=== PATIENT | male | born 1955 | race Asian ===

== ENCOUNTER 2020-09-12 12:10 | Outpatient (REF) | payer OTHER, SELFPAY ==
[2020-09-12 13:29] LABS: MANUAL DIFF FLAG NO
[2020-09-12 13:35] LABS: Basophils Percent Auto 0.4 % (0-2); Eosinophils Absolute Auto 0.2 X10*3/uL (0.0-0.4); Eosinophils Percent Auto 1.8 % (0-4); Hemoglobin 14.8 g/dl (14.0-18.0); Imm Gran Abs Auto 0.03 X10*3/uL (0.00-0.03); Imm Gran Pct Auto 0.4 % (0.0-0.4); Lymphocytes Absolute Auto 1.8 X10*3/uL (1.2-4.9); Lymphocytes Percent Auto 21.1 % (20-40); Mean Corpuscular HGB Conc 33.6 g/dl (31.0-36.0); Mean Corpuscular Hemoglobin 29.4 pg (27.0-33.0); Mean Corpuscular Volume 87.3 fL (80-98); Mean Platelet Volume 9.5 fL (9.4-12.4); Monocytes Absolute Auto 0.6 X10*3/uL (0.1-1.2); Monocytes Percent Auto 6.6 % (2-11); Neutrophils Absolute Auto 5.8 X10*3/uL (2.0-8.3); Neutrophils Percent Auto 69.7 % (45-73); Platelet Count 316 X10*3/uL (160-400); Red Blood Count 5.04 X10*6/uL (4.60-5.80); Red Cell Distribution Width 13.2 % (11.0-16.0); White Blood Count 8.4 X10*3/uL (4.8-10.8)
[2020-09-12 14:17] LABS: Alanine Aminotransferase 17 U/L (0-40); Albumin Level 4.4 g/dL (3.5-5.0); Alkaline Phosphatase 74 U/L (39-117); Anion Gap 14 (12-20); Aspartate Amino Transferase 22 U/L (5-37); Bilirubin Total 1.4 mg/dL (0.0-1.0); Blood Urea Nitrogen 18 mg/dL (9-16); Calcium 8.9 mg/dL (8.4-10.2); Carbon Dioxide 27 mmol/L (22-29); Chloride 103 mmol/L (96-108); Cholesterol 211 mg/dL; Estimated Glomerular Filt Rate > 60; Glucose Random 96 mg/dL (60-115); HDL Cholesterol 52 mg/dL; LDL Cholesterol Calculated 136 mg/dl; Potassium 4.5 mmol/l (3.3-5.1); Sodium 139 mmol/L (135-145); Total Protein 7.6 g/dL (6.5-8.0); Triglycerides 116 mg/dL
[2020-09-12 14:29] LABS: Folate 19.2 ng/mL (> or = 4.0); Vitamin B12 688 pg/mL (200-900)
[2020-09-12 14:34] LABS: Free T4 (Free Thyroxine) 1.05 ng/dL (0.71-1.85); Thyroid Stimulating Hormone 1.73 mIU/mL (0.32-4.0)
== END 2020-09-12 12:11 | disposition home or self-care (01) ==
LOC: HO.LAB 12:10
PROVIDERS: PCP Internal Medicine; Visit Provider Internal Medicine
DX: E78.00 Pure hypercholesterolemia, unspecified (principal); E03.9 Hypothyroidism, unspecified
CPT/HCPCS: 36415; 80053; 80061; 82607; 82746; 84439; 84443; 85025

== ENCOUNTER 2021-09-03 11:10 | Outpatient (REF) | payer OTHER, SELFPAY ==
[2021-09-03 11:29] LABS: MANUAL DIFF FLAG NO
[2021-09-03 12:02] LABS: Basophils Percent Auto 0.4 % (0-2); Eosinophils Absolute Auto 0.1 X10*3/uL (0.0-0.4); Eosinophils Percent Auto 1.6 % (0-4); Hematocrit 44.4 % (42-52); Imm Gran Abs Auto 0.02 X10*3/uL (0.00-0.03); Imm Gran Pct Auto 0.3 % (0.0-0.4); Lymphocytes Absolute Auto 1.6 X10*3/uL (1.2-4.9); Lymphocytes Percent Auto 19.6 % (20-40); Mean Corpuscular HGB Conc 33.8 g/dl (31.0-36.0); Mean Corpuscular Hemoglobin 29.2 pg (27.0-33.0); Mean Corpuscular Volume 86.5 fL (80-98); Mean Platelet Volume 9.6 fL (9.4-12.4); Monocytes Absolute Auto 0.5 X10*3/uL (0.1-1.2); Monocytes Percent Auto 6.6 % (2-11); Neutrophils Absolute Auto 5.6 X10*3/uL (2.0-8.3); Neutrophils Percent Auto 71.5 % (45-73); Platelet Count 283 X10*3/uL (160-400); Red Blood Count 5.13 X10*6/uL (4.60-5.80); Red Cell Distribution Width 13.1 % (11.0-16.0); White Blood Count 7.9 X10*3/uL (4.8-10.8)
[2021-09-03 12:23] LABS: Alanine Aminotransferase 15 U/L (0-40); Albumin Level 4.5 g/dL (3.5-5.0); Alkaline Phosphatase 80 U/L (39-117); Anion Gap 12 (12-20); Aspartate Amino Transferase 19 U/L (5-37); Bilirubin Total 1.5 mg/dL (0.0-1.0); Blood Urea Nitrogen 17 mg/dL (9-16); Calcium 9.8 mg/dL (8.4-10.2); Carbon Dioxide 25 mmol/L (22-29); Chloride 109 mmol/L (96-108); Cholesterol 219 mg/dL; Estimated Glomerular Filt Rate 56; Glucose Random 96 mg/dL (60-115); HDL Cholesterol 49 mg/dL; LDL Cholesterol Calculated 143 mg/dl; Potassium 4.8 mmol/L (3.3-5.1); Sodium 141 mmol/L (135-145); Total Protein 7.7 g/dL (6.5-8.0); Triglycerides 136 mg/dL
[2021-09-03 12:34] LABS: Free T4 (Free Thyroxine) 0.82 ng/dL (0.71-1.85); Prostate Specific Antigen Scr 0.31 ng/mL (<0.05-4.0); Thyroid Stimulating Hormone 1.43 uIU/mL (0.32-4.0)
[2021-09-03 12:54] LABS: Folate > 20.0 ng/mL (> or = 4.0); Vitamin B12 992 pg/mL (200-900)
== END 2021-09-03 11:11 | disposition home or self-care (01) ==
LOC: HO.LAB 11:10
PROVIDERS: PCP Internal Medicine; Visit Provider Internal Medicine
DX: I10 Essential (primary) hypertension (principal); E03.9 Hypothyroidism, unspecified; E78.00 Pure hypercholesterolemia, unspecified
CPT/HCPCS: 36415; 80053; 80061; 82607; 82746; 84153; 84439; 84443; 85025

== ENCOUNTER 2022-03-12 10:47 | Day surgery (SDC) | payer OTHER, SELFPAY ==
[2022-03-07 11:41] VITALS: BMI 28.6
[2022-03-07 12:42] VITALS: BMI 28.3
[2022-03-12 11:00] VITALS: BP 169/92; PULSE 82; RESP 18; TEMP 36.6; O2SAT 97
--- NOTE | 2022-03-12 12:47 | MHC.SHP ---
Pre-Procedural Eval Section A Date of Service: 03/12/22 The patient is an INPATIENT: No Changes since office visit: No Cold of Flu in the past 2 weeks, No New Medical Problems, No Changes in Medication and No Patient answered all questions The History & Physical has been completed within 30 days and I have reviewed it.: Yes Section B Chief Complaint: screening Allergies: Allergies Allergy/AdvReac Type Severity Reaction Status Date / Time CT /iv dye Allergy Unknown N/V, hot Uncoded 03/07/22 12:41 feeling when injected quickly Plan I have reviewed the history and physical and performed a pertinent physical examination on my patient. No changes have occurred unless specified.
--- NOTE | 2022-03-12 12:48 | HO.ANESPROP2 ---
[facility] Active Problems Active Problems: All Active Problems (Updated 03/07/22 @ 12:45 by Ophelia Avilez, RN) Hemorrhoids (Acute) Annual physical exam (Acute) Tubular adenoma of colon (Acute) Folic acid deficiency (Acute) Hypertension (Acute) Hypercholesterolemia (Acute) Hypothyroid (Acute) Past Medical History Medical History Folic acid deficiency Hx of renal calculi Hx of transfusion of packed red blood cells Hypercholesterolemia Hypertension Hypothyroid Lazy eye of left side Nephrolithiasis Tooth ache Tubular adenoma of colon Functional capacity: independent ambulation Family History Family History Father Hypertension CAD (coronary artery disease) Mother Hypertension Stroke Sister Thyroid cancer Family history of problems with anesthesia: No Surgical History Surgical History (Updated 03/07/22 @ 12:21 by Ophelia Avilez RN) History of eye surgery Pituitary tumor History of Problems with Anesthesia: No Social History Social History Housing: Apartment Are you a primary adult live in caregiver to a significant other at home: Yes (helps to care for mother with dementia, will have replacement DOS) Do you presently have visiting nurse or other home services: No Alcohol intake: never Patient Tobacco Use Status: Never used Tobacco e-Cigarette/Vaping Use: Never Used Second Hand Smoke Exposure: No Use of substances other than those prescribed or required for medical reasons: No Have you been hit, kicked, punched, or otherwise hurt by someone within the past year? If so, by whom?: No Are you DNR?: No Advance Directives: No Advance Directives Information Provided: Yes Advance Directives on File: No Recently lost weight without trying: No Nutrition Risks: No Nutritional Risk Poor oral hygiene: No (tooth ache-right lower molar) Current occupational status: employed Meds Allergies Allergy/AdvReac Type Severity Reaction Status Date / Time CT /iv dye Allergy Unknown N/V, hot Uncoded 03/07/22 12:41 feeling when injected quickly Exam Exam Date and Time: March 12, 2022 1248 Height,Weight and Vital Signs: Height 5 ft 5 in Weight 77.111 kg Last Vital Signs Temp 97.8 F 03/12/22 11:00 Pulse 82 03/12/22 11:00 Resp 18 03/12/22 11:00 BP 169/92 H 03/12/22 11:00 Pulse Ox 97 03/12/22 11:00 Airway Mallampati Class: II TM Dist: >3cm Neck ROM: Full Heart: RRR Lungs: CTA Assessment and Plan Assessment Anesthesia Assessment: Anesthesia Plan Discussed and Smoking Cess. Discussed Final Anesthetic Review Family History of Problems with Anesthesia: No History of Problems with Anesthesia: No ASA Class: II Final Preanesthetic Review: No Changes in Pt Med Stat, Meds/Allgs Chart Reviewed, Consent Obtained/Reviewed and Anes Risks/Benef Reviewed Patient Risk: Low Procedure Risk: Low Anesthetic Plan Disposition: Standard PACU
--- NOTE | 2022-03-12 13:14 | P.BOP_ITS ---
Brief Operative Note Date of Service: 03/12/22 Pre-op diagnosis: screeneng Post-op diagnosis: same Procedure: colonoscopy Surgeon: Alli Potter Anesthesia: MAC Was an Damage Appraiser used for this Procedure?: No Estimated blood loss (mL): 0 Pathology: none sent Condition: stable Disposition: PACU
[2022-03-12 13:20] VITALS: BP 118/80; PULSE 76; RESP 16; TEMP 36.1; O2SAT 97
[2022-03-12 13:35] VITALS: BP 149/95; PULSE 73; RESP 16; TEMP 36.2; O2SAT 95
--- NOTE | 2022-03-12 15:30 | HO.POSTANES ---
Post Anesthesia Evaluation Post Anesthesia Evaluation Vital Signs: Vital Signs Temp Pulse Resp BP Pulse Ox 03/12/22 13:35 97.2 F 73 16 149/95 H 95 03/12/22 13:20 97 F 76 16 118/80 97 03/12/22 11:00 97.8 F 82 18 169/92 H 97 Anesthesia: Monitored Mental Status: Awake Nausea/Vomiting: None Hydration: Adequate Anesthesia-Related Issues: No Anes. Related Issues
--- NOTE | 2022-03-13 00:39 | OP_ITS ---
SURGEON: Alli Potter MD INDICATIONS: Colon cancer screening and prior history of adenomatous colon polyps. PREOPERATIVE DIAGNOSIS: POSTOPERATIVE DIAGNOSIS: PROCEDURE PERFORMED: Colonoscopy to the terminal ilium. ESTIMATED BLOOD LOSS: COMPLICATIONS: ANESTHESIA: Medications, monitored anesthesia care. ASSISTANTS: SPECIMENS: DESCRIPTION OF PROCEDURE: History and physical performed. The risks and benefits of the procedure were explained to the patient. Informed consent was obtained. The patient was placed in the left lateral decubitus position. A digital rectal exam was performed and was remarkable for moderately large external hemorrhoids. The Olympus pediatric video colonoscope was introduced into the rectum and advanced to the cecum without difficulty. The cecum was identified by transillumination, palpation, and identification of the ileocecal valve. Examination was performed. The scope was removed. He tolerated the procedure well and was transferred to the recovery area in stable condition. FINDINGS: The terminal ileum was examined and appeared normal. The visualized colonic mucosa was normal. The quality of the prep was good except in the right colon where there was a large amount of liquid stool and some semi-formed stool. This was washed and suctioned as best possible. There was moderate diverticulosis mainly in the right colon and cecum. No polyps were identified. Retroflexed examination showed moderate-sized internal hemorrhoids. IMPRESSION: 1. Normal colonoscopy. 2. Internal/external hemorrhoids. 3. Diverticulosis. RECOMMENDATION: 1. Follow up as needed. 2. Repeat colonoscopy is recommended in 10 years for average risk individuals. 3. Surgical referral for evaluation of external hemorrhoids. (Declined by patient) MD HETAL Lebron/OLENAL / [id number] MTDD
== END 2022-03-12 14:33 | disposition home or self-care (01) ==
PROVIDERS: PCP Internal Medicine; Visit Provider Internal Medicine Gastroenterology
PROC: 0DJD8ZZ Inspection of Lower Intestinal Tract, Via Natural or Artificial Opening Endoscopic (ICD-10-PCS; CPT 45378; principal; 2022-03-12 12:40)
DX: Z12.11 Encounter for screening for malignant neoplasm of colon (principal); Z86.010 Personal history of colon polyps; K57.30 Diverticulosis of large intestine without perforation or abscess without bleeding; K64.8 Other hemorrhoids; K64.4 Residual hemorrhoidal skin tags; E53.8 Deficiency of other specified B group vitamins; E78.00 Pure hypercholesterolemia, unspecified; I10 Essential (primary) hypertension; E03.9 Hypothyroidism, unspecified; G81.94 Hemiplegia, unspecified affecting left nondominant side; H53.002 Unspecified amblyopia, left eye; Z79.899 Other long term (current) drug therapy; Z91.041 Radiographic dye allergy status; Z87.442 Personal history of urinary calculi; Z98.890 Other specified postprocedural states
CPT/HCPCS: 45378

== ENCOUNTER 2022-10-21 11:31 | Outpatient (REF) | payer MEDICARE, SELFPAY ==
[2022-10-21 11:43] LABS: MANUAL DIFF FLAG NO
[2022-10-21 12:10] LABS: Basophils Percent Auto 0.3 % (0-2); Eosinophils Absolute Auto 0.2 X10*3/uL (0.0-0.4); Eosinophils Percent Auto 1.7 % (0-4); Hematocrit 43.4 % (42.0-52.0); Hemoglobin 14.5 g/dl (14.0-18.0); Imm Gran Abs Auto 0.02 X10*3/uL (0.00-0.03); Imm Gran Pct Auto 0.2 % (0.0-0.4); Lymphocytes Absolute Auto 1.9 X10*3/uL (1.2-4.9); Lymphocytes Percent Auto 20.1 % (20-40); Mean Corpuscular HGB Conc 33.4 g/dl (31.0-36.0); Mean Corpuscular Hemoglobin 29.1 pg (27.0-33.0); Mean Corpuscular Volume 87.1 fL (80.0-98.0); Mean Platelet Volume 9.3 fL (9.4-12.4); Monocytes Absolute Auto 0.7 X10*3/uL (0.1-1.2); Monocytes Percent Auto 7.3 % (2-11); Neutrophils Absolute Auto 6.7 x10*3/uL (2.0-8.3); Neutrophils Percent Auto 70.4 % (45-73); Platelet Count 298 X10*3/uL (160-400); Red Blood Count 4.98 X10*6/uL (4.60-5.80); White Blood Count 9.6 X10*3/uL (4.8-10.8)
[2022-10-21 12:59] LABS: Alanine Aminotransferase 21 U/L (0-40); Albumin Level 4.3 g/dL (3.5-5.0); Alkaline Phosphatase 103 U/L (39-117); Anion Gap 10 (12-20); Aspartate Amino Transferase 26 U/L (5-37); Bilirubin Total 1.3 mg/dL (0.0-1.0); Blood Urea Nitrogen 16 mg/dL (9-16); Calcium 9.3 mg/dL (8.4-10.2); Carbon Dioxide 27 mmol/L (22-29); Chloride 110 mmol/L (96-108); Cholesterol 213 mg/dL; Estimated Glomerular Filt Rate > 60; Free T4 (Free Thyroxine) 0.99 ng/dL (0.71-1.85); Glucose Random 92 mg/dL (60-115); HDL Cholesterol 52 mg/dL; LDL Cholesterol Calculated 141 mg/dl; Potassium 5.2 mmol/L (3.3-5.1); Prostate Specific Antigen Scr 0.34 ng/mL (<0.05-4.0); Sodium 142 mmol/L (135-145); Thyroid Stimulating Hormone 0.87 uIU/mL (0.32-4.0); Total Protein 7.2 g/dL (6.5-8.0); Triglycerides 101 mg/dL
[2022-10-21 13:10] LABS: Folate 19.9 ng/mL (> or = 4.0); Vitamin B12 788 pg/mL (200-900)
== END 2022-10-21 11:32 | disposition home or self-care (01) ==
LOC: HO.LAB 11:31
PROVIDERS: PCP Internal Medicine; Visit Provider Internal Medicine
DX: Z12.5 Encounter for screening for malignant neoplasm of prostate (principal); E03.9 Hypothyroidism, unspecified; E78.00 Pure hypercholesterolemia, unspecified
CPT/HCPCS: 36415; 80053; 80061; 82607; 82746; 84153; 84439; 84443; 85025

== ENCOUNTER 2023-01-20 11:23 | Outpatient (REF) | payer MEDICARE, SELFPAY ==
[2023-01-20 12:40] LABS: Alanine Aminotransferase 11 U/L (0-40); Albumin Level 4.1 g/dL (3.5-5.0); Alkaline Phosphatase 101 U/L (39-117); Anion Gap 11 (12-20); Aspartate Amino Transferase 15 U/L (5-37); Bilirubin Total 1.4 mg/dL (0.0-1.0); Blood Urea Nitrogen 19 mg/dL (9-16); Calcium 9.2 mg/dL (8.4-10.2); Carbon Dioxide 26 mmol/L (22-29); Chloride 108 mmol/L (96-108); Cholesterol 211 mg/dL; Estimated Glomerular Filt Rate > 60; Glucose Random 90 mg/dL (60-115); HDL Cholesterol 52 mg/dL; LDL Cholesterol Calculated 140 mg/dl; Potassium 5.2 mmol/L (3.3-5.1); Sodium 140 mmol/L (135-145); Total Protein 7.1 g/dL (6.5-8.0); Triglycerides 98 mg/dL
== END 2023-01-20 11:24 | disposition home or self-care (01) ==
LOC: HO.LAB 11:23
PROVIDERS: PCP Internal Medicine; Visit Provider Internal Medicine
DX: E78.00 Pure hypercholesterolemia, unspecified (principal)
CPT/HCPCS: 36415; 80053; 80061

== ENCOUNTER 2023-05-05 10:13 | Outpatient (REF) | payer MEDICARE, SELFPAY ==
[2023-05-05 11:48] LABS: Alanine Aminotransferase 16 U/L (0-40); Albumin Level 4.1 g/dL (3.5-5.0); Alkaline Phosphatase 79 U/L (39-117); Anion Gap 12 (12-20); Aspartate Amino Transferase 17 U/L (5-37); Bilirubin Total 1.1 mg/dL (0.0-1.0); Blood Urea Nitrogen 21 mg/dL (9-16); Calcium 9.3 mg/dL (8.4-10.2); Carbon Dioxide 25 mmol/L (22-29); Chloride 106 mmol/L (96-108); Cholesterol 192 mg/dL; Estimated Glomerular Filt Rate > 60; Glucose Random 90 mg/dL (60-115); HDL Cholesterol 49 mg/dL; LDL Cholesterol Calculated 121 mg/dl; Potassium 4.1 mmol/L (3.3-5.1); Sodium 139 mmol/L (135-145); Total Protein 7.4 g/dL (6.5-8.0); Triglycerides 110 mg/dL
== END 2023-05-05 10:14 | disposition home or self-care (01) ==
LOC: HO.LAB 10:13
PROVIDERS: PCP Internal Medicine; Visit Provider Internal Medicine
DX: E78.00 Pure hypercholesterolemia, unspecified (principal)
CPT/HCPCS: 36415; 80053; 80061

== ENCOUNTER 2023-11-14 13:04 | Outpatient (AMB) | payer MEDICARE, SELFPAY ==
--- NOTE | 2023-11-14 13:14 | A.OFFPC_ITS ---
Vital Signs 11/14/23 13:16 Height 5 ft 5 in Weight 157 lb 8 oz BMI 26.2 BP 132/82 Blood Pressure Location Lt brachial Position Sitting Pulse 76 Pulse Source Pulse Oximeter Pulse Oximetry (%) 95 Oxygen Delivery Method Room Air Intake Visit Reasons: Annual Exam Intake Note: Patient is here today for a physical. Corrections Sergeant Required: No Explosive Ordnance Manager: Not Required per policy Accompanied by: Self / Same As Patient Allergies CT /iv dye Allergy (Unknown, Uncoded 11/14/23 13:16) N/V, hot feeling when injected quickly Medication List - Last Reconciled 11/14/23 by Joyce Vázquez MD atorvastatin 40 mg PO DAILY 90 days ergocalciferol (vitamin D2) (Vitamin D2) 1,250 mcg PO QWEEK folic acid 1 mg PO DAILY 90 days hydrocortisone 2.5% (Proctosol HC) 1 appl AR BID-QID PRN levothyroxine 50 mcg PO DAILY Tobacco use date assessed: 11/14/23 Fall risk assessment: No Falls in past year Last assessed Fall Risk: 11/14/23 Dental Screening Dental Screen Date: 11/14/23 Did you have a dental visit in the last 12 months?: Yes Did you have a dental problem in the last 6 months where you did not have access to dental care?: No Was dental information given to patient?: Patient has dentist HPI Annual Exam HPI Details 68-year-old male with white coat syndrom e hypertension hypercholesterolemia hypothyroidism last seen in April 2023 patient is up-to-date with colonoscopy and is here for physical exam [facility] Medical History (Updated 11/14/23 @ 14:12 by Joyce Vázquez MD) Hx of transfusion of packed red blood cells Tooth ache Nephrolithiasis Tubular adenoma of colon Hx of renal calculi Lazy eye of left side Folic acid deficiency Hypercholesterolemia Hypothyroid Surgical History (Updated 11/14/23 @ 13:22 by ANGEL Stuart) History of dental surgery History of eye surgery Pituitary tumor Family History Father Hypertension CAD (coronary artery disease) Mother Hypertension Stroke Sister Thyroid cancer Social History Housing: Apartment Are you a primary nurse behavioral health care to a significant other at home: Yes (helps to care for mother with dementia, will have replacement DOS) Do you presently have visiting nurse or other home services: No Alcohol intake: never Patient Tobacco Use Status: Never used Tobacco e-Cigarette/Vaping Use: Never Used Second Hand Smoke Exposure: No service: No Current occupational status: employed Cognitive needs: No Hearing needs: No Vision needs: No Questionnaire Thrive Questionnaire Date Thrive assessed: 05/14/23 JOCELYN-7 AMB Questionnaire JOCELYN-7 Date JOCELYN - 7 assessed: 02/06/23 Source: Developed by Drs. Moustapha Combs, Sue Barros, Dinh Chirinos and colleagues, with an educational asif from [employer]. Review of Systems Const Denies poor appetite and Denies weakness Eyes Denies no additional complaints ENT Reports Normal hearing present, Denies dizziness, Denies nasal congestion, Denies tinnitus and Denies sore throat Card Denies chest pain, Denies syncope, Denies rapid heart rate and Denies dyspnea Resp Denies cough and Denies dyspnea GI Denies change in stool character, Reports constipation, Denies diarrhea, Denies nausea and Denies vomiting Denies dysuria and Denies urinary frequency Neuro Reports Normal hearing present, Denies confusion, Denies dizziness, Denies syncope and Denies weakness Psych Denies confusion Physical exam (Primary Care) Vital Signs: Last Vital Signs Pulse 76 11/14/23 13:16 BP 132/82 11/14/23 13:16 Pulse Ox 95 11/14/23 13:16 Oxygen Delivery Method Room Air 11/14/23 13:16 Care Plan Goal for BP management: guaiac negative prostate N externa hemorrhoids seen BMI result Body Mass Index 26.2 Tobacco/Smoking Status: Tobacco use Status Tobacco use date assessed 11/14/23 11/14/23 13:23 Patient Tobacco Use Status Never used Tobacco 11/14/23 13:15 e-Cigarette/Vaping Use Never Used 11/14/23 13:15 Thrive Assessment: Date of Thrive Assessment Date Thrive assessed 05/14/23 11/14/23 13:15 Const General: No confusion Orientation/consciousness: No confusion HENMT Head: Yes normocephalic Ears: external ears normal and TM's normal bilaterally Face and sinus: Yes normal facial exam Mouth: moist mucous membranes Throat: Yes tonsils normal Eyes Conjunctivae: conjunctivae normal Pupils: Equal, round and reactive pupils present and Pupil accommodation reflex normal Direct Ophthalmoscopy: normal light reflex Neck Neck: No lymphadenopathy Thyroid: Thyroid normal Chest Chest palpation & inspection: normal inspection of the chest Resp Effort & Inspection: normal respiratory effort and no audible wheezes Auscultation: clear to auscultation bilaterally, no crackles, no wheezes and lung sounds not diminished Cardio Rate: regular rate Rhythm: regular rhythm Peripheral pulses: radial pulses present and dorsalis pedis present GI Palpation (GI): no masses Auscultation: normal bowel sounds and normoactive bowel sounds Male General Exam: Yes normal external exam Skin General skin exam: no rashes or lesions noted Rashes: no rashes Neuro General: No confusion Cranial nerves: Yes Equal, round and reactive pupils present and Yes Normal hearing present Cognition (Neuro): normal cognition Gait exam (Neuro): Normal gait present Motor exam (neuro): 5/5 motor strength present throughout Deep tendon reflexes (DTR's): Right brachioradialis reflex intensity grade: 2+, Left brachioradialis reflex intensity grade: 2+, Right patellar reflex intensity grade: 2+ and Left patellar reflex intensity grade: 2+ Extrem General: No edema Office Procedures Flu Questionnaire Does the patient have a severe egg allergy?: No Does the patient have severe life threatening allergies?: No Does the patient have a fever or illness today?: No Has the patient ever had Guillain-Canyon Syndrome?: No Has the patient ever had any past reaction to a flu shot?: No Immunizations flu vacc [id number] 6mos up(PF) 60 mcg(15 mcgx4)/0.5 mL IM syringe Performing Provider: Joyce Vázquez MD [facility] Administered by: Marlena Trotter CMA on 11/14/23 13:28 Dose Route Admin Location Dispensed Lot Number Expiration Date NDC Cable Dispatcher 0.5 mL IM Left Deltoid 0.5 mL [id number] 05/16/24 [id number] [employer] VIS Given Date VIS Provided VIS Publication Date 11/14/23 Single Vaccine 21 Eligibility Eligibility Date Funding Source Not [facility] Eligible 11/14/23 Private Assessment and Plan Assessment & Plan (1) Annual physical exam: Code(s): Z00.00 - Encounter for general adult medical examination without abnormal findings (2) Hypothyroid: Code(s): E03.9 - Hypothyroidism, unspecified Qualifiers: Hypothyroidism type: acquired Qualified Code(s): E03.9 - Hypothyroidism, unspecified Plan: Continue with thyroid medication will have to do blood work (3) Hypercholesterolemia: Code(s): E78.00 - Pure hypercholesterolemia, unspecified Plan: Avoid fried foods, chicken skin, eggs, butter margarine, pastries and meat. Be it pork or beef they have a lot of cholesterol on atorvastatin will have blood work done (4) White coat syndrome without diagnosis of hypertension: Code(s): R03.0 - Elevated blood-pressure reading, without diagnosis of hypertension Plan: Will continue to monitor (5) External hemorrhoid: Code(s): K64.4 - Residual hemorrhoidal skin tags Plan: avoid constipation. Orders: Orders Influenza [id number] Immunization Today Z23 - Encounter for immunization Comprehensive Met. Panel Today E78.00 - Pure hypercholesterolemia, unspecified Lipid Panel Today E78.00 - Pure hypercholesterolemia, unspecified Thyroid Stimulating Hormone Today E78.00 - Pure hypercholesterolemia, unspecified Vitamin B12 and Folate Today E78.00 - Pure hypercholesterolemia, unspecified Vitamin D 25-OH Total Today E78.00 - Pure hypercholesterolemia, unspecified Free T4 (Free Thyroxine) Today E78.00 - Pure hypercholesterolemia, unspecified Prostate Specific Antigen Scr Today E78.00 - Pure hypercholesterolemia, unspecified Complete Blood Count Auto Diff Today E78.00 - Pure hypercholesterolemia, unspecified Medications: Refilled levothyroxine 50 mcg PO DAILY 90 tabs 2RF E03.9 - Hypothyroidism, unspecified Coding Level of Care Code Est Pt Prev Care >65y(42091) Diagnoses Annual physical exam Z00.00 Acquired hypothyroidism E03.9 Hypothyroidism type: acquired Hypercholesterolemia E78.00 White coat syndrome without diagnosis of hypertension R03.0 External hemorrhoid K64.4
[2023-11-14 13:16] VITALS: BP 132/82; PULSE 76; O2SAT 95; BMI 26.2
== END 2023-11-14 14:19 | disposition home or self-care (01) ==
PROVIDERS: Visit Provider Internal Medicine
DX: Z00.00 Encounter for general adult medical examination without abnormal findings (principal); E03.9 Hypothyroidism, unspecified; E78.00 Pure hypercholesterolemia, unspecified; Z23 Encounter for immunization; R03.0 Elevated blood-pressure reading, without diagnosis of hypertension; K64.4 Residual hemorrhoidal skin tags
CPT/HCPCS: 90471; 90686; 99397

== ENCOUNTER 2023-11-27 11:26 | Outpatient (REF) | payer MEDICARE, SELFPAY ==
[2023-11-27 11:38] LABS: MANUAL DIFF FLAG NO
[2023-11-27 12:01] LABS: Basophils Percent Auto 0.4 % (0-2); Eosinophils Absolute Auto 0.3 X10*3/uL (0.0-0.4); Eosinophils Percent Auto 3.2 % (0-4); Hematocrit 43.3 % (42.0-52.0); Hemoglobin 14.6 g/dl (14.0-18.0); Imm Gran Abs Auto 0.04 X10*3/uL (0.00-0.03); Imm Gran Pct Auto 0.5 % (0.0-0.4); Lymphocytes Absolute Auto 2.2 X10*3/uL (1.2-4.9); Lymphocytes Percent Auto 28.6 % (20-40); Mean Corpuscular HGB Conc 33.7 g/dl (31.0-36.0); Mean Corpuscular Hemoglobin 29.4 pg (27.0-33.0); Mean Corpuscular Volume 87.3 fL (80.0-98.0); Mean Platelet Volume 9.1 fL (9.4-12.4); Monocytes Absolute Auto 0.7 X10*3/uL (0.1-1.2); Monocytes Percent Auto 8.3 % (2-11); Neutrophils Absolute Auto 4.6 x10*3/uL (2.0-8.3); Platelet Count 278 X10*3/uL (160-400); Red Blood Count 4.96 X10*6/uL (4.60-5.80); Red Cell Distribution Width 12.8 % (11.0-16.0); White Blood Count 7.8 X10*3/uL (4.8-10.8)
[2023-11-27 12:52] LABS: Alanine Aminotransferase 25 U/L (0-40); Albumin Level 4.2 g/dL (3.5-5.0); Alkaline Phosphatase 76 U/L (39-117); Anion Gap 12 (12-20); Aspartate Amino Transferase 22 U/L (5-37); Bilirubin Total 1.1 mg/dL (0.0-1.0); Blood Urea Nitrogen 15 mg/dL (9-16); Calcium 9.6 mg/dL (8.4-10.2); Carbon Dioxide 27 mmol/L (22-29); Chloride 110 mmol/L (96-108); Cholesterol 211 mg/dL (<200); Estimated Glomerular Filt Rate > 60; Glucose Random 91 mg/dL (60-115); HDL Cholesterol 56 mg/dL (>40); LDL Cholesterol Calculated 120 mg/dL (<100); Potassium 4.7 mmol/L (3.3-5.1); Sodium 144 mmol/L (135-145); Total Protein 7.8 g/dL (6.5-8.0); Triglycerides 178 mg/dL (<150)
[2023-11-27 13:10] LABS: Free T4 (Free Thyroxine) 0.94 ng/dL (0.71-1.85); Thyroid Stimulating Hormone 1.08 uIU/mL (0.32-4.0); Vitamin D 25-OH Total 54.2 ng/mL (>30)
[2023-11-27 13:49] LABS: Folate 17.2 ng/mL (> or = 4.0); Prostate Specific Antigen Scr 0.32 ng/mL (<0.05-4.0); Vitamin B12 664 pg/mL (200-900)
== END 2023-11-27 11:27 | disposition home or self-care (01) ==
LOC: HO.LAB 11:26
PROVIDERS: PCP Internal Medicine; Visit Provider Internal Medicine
DX: E78.00 Pure hypercholesterolemia, unspecified (principal); Z12.5 Encounter for screening for malignant neoplasm of prostate
CPT/HCPCS: 36415; 80053; 80061; 82306; 82607; 82746; 84153; 84439; 84443; 85025

== ENCOUNTER 2024-11-16 12:39 | Outpatient (AMB) | payer MEDICARE, SELFPAY ==
--- OUTSIDE RECORDS SUMMARY | 2024-11-16 12:41 | XMS_ITS | Patient Health Record ---
Author Organization [facility] Address [address] [place] [address] Care Team Providers Care [place] Name Role Phone Joyce Vázquez MD Primary Care Provider Alli Farley Jr Unavailable ALLERGIES Allergen (clinical drug ingredient) Drug/Non Drug Allergy documented on EMR Reaction Allergy Type Onset Date Status sensative to IV contrast dye (uncoded) Unknown Allergy Active REASON FOR REFERRAL No Information MEDICATIONS Medication SIG (Take, Route, Frequency, Duration) Notes Start Date End Date Status Levothyroxine Sodium Active MiraLax (colon prep) 17 GM/SCOOP mixed with Gatorade or Crystal Light Orally begin at 5:00 p.m. the day before the procedure for 1 day 02/11/2022 Active Folic Acid 1 MG Oral for 13 Ac tive Atorvastatin Calcium 10 MG TAKE 1 TABLET BY MOUTH DAILY. Oral for 90 Active Vitamin D Active IMMUNIZATIONS Vaccine Route Administration Date Status Comme nts Influenza Unknown 10/10/2021 Administered SOCIAL HISTORY Sex Assigned At : Social History Observation Description Sex Assigned At Unknown PROBLEMS Problem Type ICD Code Onset Dates Problem Status W/U Status Risk SNOMED Code Notes Problem Rectal bleeding (K62.5) Active confirmed 32419943 Problem Hemorrhoids, unspecified hemorrhoid type (K64.9) Active confirmed 69138695 Problem Colon cancer screening (Z12.11) Active confirmed 451410692 PLAN OF TREATMENT Future Test Test Name Order Date COLONOSCOPY 11/22/2015 COLONOSCOPY 02/11/2022 Insurance Providers Payer Name Payer Address Payer Phone Subscriber Number Group Number Insured Name Patient Relationship to Insured Coverage Start Date Coverage End Date [facility] [address] [address] [place], [place] [phone] [id number] SADA CONNOLLY Self - patient is the insured MEDICAL (GENERAL) HISTORY Medical History History ICD Code hypothyroidism nephrolithiasis 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
[2024-11-16 12:50] VITALS: BP 132/86; PULSE 80; O2SAT 96; BMI 26.3
--- NOTE | 2024-11-16 12:50 | A.OFFPC_ITS ---
Vital Signs 11/16/24 12:50 Height 5 ft 5 in Weight 158 lb 2 oz BMI 26.3 BP 132/86 Blood Pressure Location Lt brachial Position Sitting Pulse 80 Pulse Source Pulse Oximeter Pulse Oximetry (%) 96 Oxygen Delivery Method Room Air Intake Visit Reasons: Annual Exam Allergies CT /iv dye Allergy (Unknown, Uncoded 11/16/24 12:52) N/V, hot feeling when injected quickly Medication List - Last Reconciled 11/16/24 by Joyce Vázquez MD atorvastatin 40 mg PO DAILY 90 days cyanocobalamin (vitamin B-12) (Vitamin B-12) 500 mcg PO .4x a week ergocalciferol (vitamin D2) (Vitamin D2) 1,250 mcg PO QWEEK folic acid 1 mg PO DAILY 90 days hydrocortisone 2.5% (Proctosol HC) 1 appl NE BID-QID PRN levothyroxine 50 mcg PO DAILY Tobacco use date assessed: 11/16/24 Fall risk assessment: No Falls in past year Last assessed Fall Risk: 11/16/24 Dental Screening Dental Screen Date: 11/16/24 Did you have a dental visit in the last 12 months?: No Did you have a dental problem in the last 6 months where you did not have access to dental care?: No Was dental information given to patient?: Patient declined HPI Annual Exam HPI Details occ dizzy/lightheaded 06/2024 last time The patient is a 69-year-old male presenting with reports of intermittent lightheadedness. The episodes occur suddenly and last for about 10-15 minutes. They are not associated with changes in position and have occurred while the patient was performing activities in the kitchen. The patient denies associated symptoms of nausea, vomiting, fever, swallowing difficulties, hearing changes, congestion, or respiratory distress. No new diagnoses or significant changes have been noted since the last examination. Additionally, the patient has been managing previously diagnosed conditions such as eczema, hypercholesterolemia with atorvastatin 40 mg, a history of Vitamin B12 deficiency with supplementation, hypothyroidism controlled with 50 mg daily thyroid medication, and hemorrhoids. Previous vitamin B12 levels have been monitored, showing adequate control. 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 There has been a history of well- controlled hypertension. The patient monitors bowel habits closely due to hemorrhoids, indicating occasional blood presence without associated constipation, and manages symptoms with dietary adjustments. There is no history of alcohol consumption, and no significant changes have been made to the medication regimen. - Administered flu shot for current flu season. - Reviewed tetanus vaccination status; n ot due until next year. - Shingles and pneumonia vaccinations up -to-date. - Discussed maintaining adequate hydrati on as a preventative measure for lightheadedness. - Counselled on dietary fiber intake to manage hemorrhoids and bowel movement regularity. - Engages in regular physical activity, including bowling once a week. - No alcohol consumption or smoking. - - General: Denies fever, chills, or weig ht loss. - Cardiovascular: Denies chest pain, pal pitations, or shortness of breath. - Gastrointestinal: Reports occasional b lood in stools due to hemorrhoids. Denies nausea, vomiting, or heartburn. - Musculoskeletal: Denies muscle or join t pain. - Neurological: Reports episodes of ligh theadedness. Denies headaches or numbness. - Respiratory: Denies cough or breathing difficulties. - Labs: Normal Vitamin B12 levels, previ ously measured at 664, within the reference range of 200 to 900. 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 1. Little interest or pleasure in doing things: nearly every day 2. Feeling down, depressed, or hopeless: not at all 3. Trouble falling or staying asleep, or sleeping too much: not at all 4. Feeling tired or having little energy: not at all 5. Poor appetite or overeating: not at all 6. Feeling bad about yourself - or that you are a failure or have let yourself or your family down: not at all 7. Trouble concentrating on things, such as reading the newspaper or watching television: not at all 8. Moving or speaking so slowly that other people could have noticed. Or the opposite - being so fidgety or restless that you have been moving around a lot more than usual: not at all 9. Thoughts that you would be better off or of hurting yourself in some way: not at all Total score: 3 Depression Screening Interpretation: Negative Depression Screening Done: Yes 95162 - PHQ-9 Billing: Yes Source: Developed by Drs. Moustapha Combs, Sue Barros, Dinh Chirinos and colleagues, with an educational asif from [employer] Thrive Questionnaire Date Thrive assessed: 11/09/24 I am a: Patient What is your living situation today?: I have a steady place to live Within the past 12 months, did the food you bought not last and you didn't have the money to get more?: Never true Within the past 12 months, did you worry whether your food would run out before you got money to buy more?: Never true Do you have trouble paying for medicines?: No Do you have trouble getting transportation to medical appointments?: No Do you have trouble paying your heating and electricity bill?: No Do you have trouble taking care of your child, family member or friend?: I choose not to answer this question Do you have trouble with day-to-day activities such as bathing, preparing meals, shopping, managing finances, etc.?: No Are you currently unemployed and looking for a job?: No Are you interested in more education?: No Please select the resources that you would like help with: None Currently or been in a relationship where the following occur: I choose not to answer THRIVE Score: 0 AUDIT C Alcohol Use Questionnaire (AUDIT-C) 1. How often do you have a drink containing alcohol?: Never 3. How often do you have six or more drinks on one occasion?: Never Total Score: 0 JOCELYN-7 AMB Questionnaire JOCELYN-7 Date JOCELYN - 7 assessed: 11/16/24 Feeling nervous, anxious, or on edge: 0 = Not at all Not being able to stop or control worryin = Not at all Worrying too much about different things: 0 = Not at all Trouble relaxin = Not at all Being so restless that it is hard to sit still: 0 = Not at all Becoming easily annoyed or irritable: 0 = Not at all Feeling afraid as if something awful might happen: 0 = Not at all Total JOCELYN-7 score (0-4 normal; 5-9 mild; 10-14 moderate; 15-21 severe): 0 Source: Developed by Drs. Moustapha Combs, Sue Barros, Dinh Chirinos and colleagues, with an educational asif from [employer] JOCELYN-7 Assessment Billing JOCELYN-7 Assessment Tool: JOCELYN-7 Assessment 90575 Review of Systems Const Denies poor appetite and Denies weakness Eyes Denies no additional complaints ENT Reports Normal hearing present, Denies dizziness, Denies nasal congestion, Denies tinnitus and Denies sore throat Card Denies chest pain, Denies syncope, Denies rapid heart rate and Denies dyspnea Resp Denies cough and Denies dyspnea GI Denies change in stool character, Reports constipation, Denies diarrhea, Denies nausea and Denies vomiting Denies dysuria and Denies urinary frequency Neuro Reports Normal hearing present, Denies confusion, Denies dizziness, Denies syncope and Denies weakness Psych Denies confusion Physical exam (Primary Care) Vital Signs: Last Vital Signs Pulse 80 11/16/24 12:50 BP 132/86 11/16/24 12:50 Pulse Ox 96 11/16/24 12:50 Oxygen Delivery Method Room Air 11/16/24 12:50 BMI result Body Mass Index 26.3 Tobacco/Smoking Status: Tobacco use Status Tobacco use date assessed 11/16/24 11/16/24 12:53 Patient Tobacco Use Status Never used Tobacco 11/16/24 12:53 e-Cigarette/Vaping Use Never Used 11/16/24 12:53 PHQ-9: PHQ-9 Score PHQ-9: Total score 3 11/16/24 12:57 Depression Screening Interpretation: Negative Thrive Assessment: Date of Thrive Assessment Date Thrive assessed 11/09/24 11/16/24 12:53 Currently or been in a relationship where the following occur: I choose not to answer Const General: alert and awake; No confusion Orientation/consciousness: No confusion HENMT Other: left eue medially located with dilated pupils non reactive Head: Yes normocephalic Ears: external ears normal and TM's normal bilaterally Face and sinus: Yes normal facial exam Mouth: moist mucous membranes Throat: Yes tonsils normal Eyes Conjunctivae: conjunctivae normal Pupils: Equal, round and reactive pupils present and Pupil accommodation reflex normal Direct Ophthalmoscopy: normal light reflex Neck Neck: No lymphadenopathy Thyroid: Thyroid normal Chest Chest palpation & inspection: normal inspection of the chest Resp Effort & Inspection: normal respiratory effort and no audible wheezes Auscultation: clear to auscultation bilaterally, no crackles, no wheezes and lung sounds not diminished Cardio Rate: regular rate Rhythm: regular rhythm Peripheral pulses: radial pulses present and dorsalis pedis present GI Other: external hemorrhoid noted with guiaic positive Palpation (GI): no masses Auscultation: normal bowel sounds and normoactive bowel sounds Male General Exam: Yes normal external exam Skin General skin exam: no rashes or lesions noted Rashes: no rashes Neuro General: deep tendon reflexes 2+ bilaterally and No confusion Cranial nerves: Yes Equal, round and reactive pupils present, Yes Midline tongue present, Yes Normal hearing present and Yes Ability to bilaterally elevate shoulders present Cognition (Neuro): normal cognition Gait exam (Neuro): Normal gait present Motor exam (neuro): 5/5 motor strength present throughout Deep tendon reflexes (DTR's): Right brachioradialis reflex intensity grade: 2+, Left brachioradialis reflex intensity grade: 2+, Right patellar reflex intensity grade: 2+ and Left patellar reflex intensity grade: 2+ Extrem General: No edema Coding Level of Care Code Est Pt Prev Care >65y(68733) Diagnoses Annual physical exam Z00.00 Acquired hypothyroidism E03.9 Hypothyroidism type: acquired Hypercholesterolemia E78.00 Dizziness R42 External hemorrhoid K64.4 Additional Codes JOCELYN-7 Assessment Billing - JOCELYN-7 Assessment Tool: JOCELYN-7 Assessment 44528 ([id number]) PHQ-9 - 30374 - PHQ-9 Billing: Yes ([id number]) Assessment & Plan Assessment & Plan (1) Annual physical exam: Code(s): Z00.00 - Encounter for general adult medical examination without abnormal findings Category: Medical (2) Hypothyroid: Code(s): E03.9 - Hypothyroidism, unspecified Category: Medical Qualifiers: Hypothyroidism type: acquired Qualified Code(s): E03.9 - Hypothyroidism, unspecified (3) Hypercholesterolemia: Code(s): E78.00 - Pure hypercholesterolemia, unspecified Category: Medical (4) Dizziness: Code(s): R42 - Dizziness and giddiness Category: Medical (5) External hemorrhoid: Code(s): K64.4 - Residual hemorrhoidal skin tags Category: Medical Plan - Maintain current medication regimen, including atorvastatin, vitamin D, folic acid, and thyroid medication. - Increase fluid intake to prevent episodes of lightheadedness potentially related to dehydration. - Continue monitoring Vitamin levels; maintain current supplementation schedule. - Apply prescribed thick lotion to manage eczema; consider steroid creams if symptoms exacerbate. - Advise on bowel habit adjustments and potential dietary changes to alleviate hemorrhoidal symptoms. - We discussed the importance of managing hydration levels to prevent lightheadedness potentially related to dehydration. I stressed that current medications are effective in maintaining stable health, including the management of Vitamin B12 deficiency and thyroid function. We reviewed immunization status, administering the flu vaccine and noting that the patient's tetanus shot would be due the following year. We talked about warm water sitz baths as a non- invasive technique in managing hemorrhoid symptoms. Lastly, we addressed the importance of maintaining bowel regularity and proper skin care for eczema, providing guidance on [id number] options and when to consider prescribed treatments. - Maintain adequate hydration to address potential causes of lightheadedness. - Continue current medication, including atorvastatin, vitamin D, and thyroid medication, as prescribed. - Use thick lotion regularly on eczema-affected areas to prevent dryness; consider steroid creams if necessary. - Follow dietary advice to maintain bowel regularity and reduce hemorrhoidal symptoms. - Return for annual eye examination and continue protective measures for the right eye. - Contact the office if experiencing increased frequency or severity of symptoms. Orders: Orders Complete Blood Count Auto Diff Today E03.9 - Hypothyroidism, unspecified Comprehensive Met. Panel Today E03.9 - Hypothyroidism, unspecified Free T4 (Free Thyroxine) Today E03.9 - Hypothyroidism, unspecified Thyroid Stimulating Hormone Today E03.9 - Hypothyroidism, unspecified Lipid Panel Today E03.9 - Hypothyroidism, unspecified, E78.00 - Pure hypercholesterolemia, unspecified Vitamin B12 and Folate Today E03.9 - Hypothyroidism, unspecified Prostate Specific Antigen Scr Today E03.9 - Hypothyroidism, unspecified
== END 2024-11-16 13:22 | disposition home or self-care (01) ==
PROVIDERS: PCP Internal Medicine; Visit Provider Internal Medicine
DX: Z00.00 Encounter for general adult medical examination without abnormal findings (principal); E03.9 Hypothyroidism, unspecified; E78.00 Pure hypercholesterolemia, unspecified; R42 Dizziness and giddiness; K64.4 Residual hemorrhoidal skin tags; Z23 Encounter for immunization

== ENCOUNTER 2025-04-18 08:44 | Outpatient (REF) | payer MEDICARE, SELFPAY ==
[2025-04-18 08:56] LABS: MANUAL DIFF FLAG NO
--- OUTSIDE RECORDS SUMMARY | 2025-04-18 09:06 | XMS_ITS | Patient Health Record ---
Author Organization [facility] Address [address] [place] [address] Care Team Providers Care Eyelet Maker Name Role Phone Joyce Vázquez MD Primary Care Provider Alli Farley Jr Unavailable Allergies Allergen (clinical drug ingredient) Drug/Non Drug Allergy documented on EMR Reaction Allergy Type Onset Date Status sensative to IV contrast dye (uncoded) Unknown Allergy Active Reason For Referral No Information Medications Medication SIG (Take, Route, Frequency, Duration) Notes [...] Oral for 90 Active Vitamin D Active Immunizations Vaccine Route Administration Date Status Comme nts Influenza Unknown 10/10/2021 Administered Problems Problem Type SNOMED Code ICD Code Onset Dates Problem Status W/U Status Risk Notes Problem [id number] Colon cancer screening (Z12.11) Active confirmed Problem 49546562 Rectal bleeding (K62.5) Active confirmed Problem 40558176 Hemorrhoids, unspecified hemorrhoid type (K64.9) Active confirmed Plan Of Treatment Future Test Test Name Order Date COLONOSCOPY 11/22/2015 COLONOSCOPY 02/11/2022 Insurance Providers Payer Name Payer Address Payer Phone Subscriber Number Group Number Insured Name Patient Relationship to Insured Coverage Start Date Coverage End Date [facility] [employer] [facility] [address] [address] [place], [place] [phone] [id number] SADA CONNOLLY Self - patient is the insured Medical (General) History Medical History History ICD Code hypothyroidism nephrolithiasis 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
[2025-04-18 09:09] LABS: Basophils Percent Auto 0.4 % (0-2); Eosinophils Absolute Auto 0.2 X10*3/uL (0.0-0.4); Eosinophils Percent Auto 2.3 % (0-4); Hematocrit 40.7 % (42.0-52.0); Hemoglobin 13.6 g/dl (14.0-18.0); Imm Gran Abs Auto 0.03 X10*3/uL (0.00-0.03); Imm Gran Pct Auto 0.4 % (0.0-0.4); Lymphocytes Absolute Auto 2.2 X10*3/uL (1.2-4.9); Lymphocytes Percent Auto 27.6 % (20-40); Mean Corpuscular HGB Conc 33.4 g/dl (31.0-36.0); Mean Corpuscular Hemoglobin 29.6 pg (27.0-33.0); Mean Corpuscular Volume 88.5 fL (80.0-98.0); Mean Platelet Volume 9.3 fL (9.4-12.4); Monocytes Absolute Auto 0.5 X10*3/uL (0.1-1.2); Monocytes Percent Auto 6.8 % (2-11); Neutrophils Percent Auto 62.5 % (45-73); Platelet Count 260 X10*3/uL (160-400); Red Cell Distribution Width 13.2 % (11.0-16.0)
[2025-04-18 09:57] LABS: Alanine Aminotransferase 19 U/L (0-40); Albumin Level 4.2 g/dL (3.5-5.0); Alkaline Phosphatase 85 U/L (39-117); Anion Gap 11 (12-20); Aspartate Amino Transferase 25 U/L (5-37); Bilirubin Total 0.8 mg/dL (0.0-1.0); Blood Urea Nitrogen 13 mg/dL (9-16); Calcium 9.2 mg/dL (8.4-10.2); Carbon Dioxide 26 mmol/L (22-29); Chloride 110 mmol/L (96-108); Cholesterol 192 mg/dL (<200); Estimated Glomerular Filt Rate > 60; Glucose Random 96 mg/dL (60-115); HDL Cholesterol 50 mg/dL (>40); LDL Cholesterol Calculated 110 mg/dL (<100); Potassium 4.2 mmol/L (3.3-5.1); Sodium 143 mmol/L (135-145); Total Protein 7.1 g/dL (6.5-8.0); Triglycerides 163 mg/dL (<150)
[2025-04-18 10:05] LABS: Free T4 (Free Thyroxine) 0.98 ng/dL (0.71-1.85); Thyroid Stimulating Hormone 1.07 uIU/mL (0.32-4.0)
[2025-04-18 10:17] LABS: Folate 13.4 ng/mL (> or = 4.0); Prostate Specific Antigen Scr 0.37 ng/mL (<0.05-4.0); Vitamin B12 680 pg/mL (200-900)
== END 2025-04-18 08:45 | disposition home or self-care (01) ==
LOC: HO.LAB 08:44
PROVIDERS: PCP Internal Medicine; Visit Provider Internal Medicine
DX: E78.00 Pure hypercholesterolemia, unspecified (principal); E03.9 Hypothyroidism, unspecified; Z12.5 Encounter for screening for malignant neoplasm of prostate
CPT/HCPCS: 36415; 80053; 80061; 82607; 82746; 84153; 84439; 84443; 85025